=== PATIENT | male | born 1950 | race Caucasian/White ===

== ENCOUNTER 2017-10-04 20:15 | Emergency (ER) | payer OTHER, MEDICARE ==
[2017-10-04 20:34] VITALS: BP 137/77
[2017-10-04] MEDS ORDERED: ACETAMINOPHEN 325 MG TABLET PO ONE (21:07)
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
[2017-10-04] MEDS ORDERED: CYCLOBENZAPRINE HCL 10 MG TABLET PO ONE (22:11)
== END 2017-10-04 22:39 | disposition home or self-care (01) ==
LOC: ER 20:15
DX: M54.2 Cervicalgia (principal); M54.89 Other dorsalgia; M54.5 Low back pain; V49.40XA Driver injured in collision with unspecified motor vehicles in traffic accident, initial encounter
CPT/HCPCS: 72050; 72070; 99283

== ENCOUNTER 2018-11-20 20:35 | Emergency (ER) | payer OTHER, MEDICARE ==
[2018-11-20] MEDS ORDERED: FENTANYL CITRATE INJ/PF 100 MCG/2 ML AMPUL IV ONE (22:24)
[2018-11-20] MEDS ORDERED: ONDANSETRON 4 MG TAB.RAPDIS PO ONE (22:24)
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
[2018-11-20] MEDS ORDERED: FENTANYL CITRATE INJ/PF 100 MCG/2 ML AMPUL IM ONE (22:30)
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
[2018-11-21 00:33] VITALS: BP 125/68
== END 2018-11-21 00:33 | disposition home or self-care (01) ==
LOC: ER 20:35
DX: S16.1XXA Strain of muscle, fascia and tendon at neck level, initial encounter (principal); S29.019A Strain of muscle and tendon of unspecified wall of thorax, initial encounter; M54.2 Cervicalgia; M54.9 Dorsalgia, unspecified; G89.29 Other chronic pain; V87.7XXA Person injured in collision between other specified motor vehicles (traffic), initial encounter
CPT/HCPCS: 99284; 96372; 72110; 72070; 72125; S0119; J3010

== ENCOUNTER → 2019-03-11 | Outpatient (CLI) | payer OTHER, MEDICARE ==
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
--- NOTE | 2019-03-11 10:31 | RADIOLOGY REPORT (SQ) ---
EXAM DESCRIPTION: LUMBAR SPINE COMPLETE COMPLETED DATE/TIME: 03/11/2019 8:38 am REASON FOR STUDY: CERVICALGIA;LUMBAGO WITH SCIATICA M54.2 CERVICALGIA COMPARISON: 11/20/2018. NUMBER OF VIEWS: Five views including obliques. TECHNIQUE: AP, lateral, oblique, and sacral radiographic images acquired of the lumbar spine. LIMITATIONS: None. FINDINGS: MINERALIZATION: Normal. SEGMENTATION: There are 5 lumbar-type vertebral bodies. There is no transitional anatomy at the lumb osacral junction. ALIGNMENT: The alignment of the lumbar spine is unchanged with grade 1 retrolisthesis of L2 relative to L3 and L3 relative to L4. VERTEBRAE: Unchanged compression deformity of the superior endplate of the degeneration of the facet joints throughout the lumbar spine. HARDWARE: None in the spine. PARASPINAL SOFT TISSUES: Normal. PELVIS: Intact. OTHER: No other finding. IMPRESSION: 1. Degenerative spondylosis and facet arthropathy of the lumbar spine, unchanged from . 2. Unchanged chronic fracture deformity of the L2 vertebral body with approximately 25% loss of the v ertebral body height. TECHNICAL DOCUMENTATION: JOB ID: [id number] [employer]- All Rights Reserved Reading location - IP/workstation name: [email or web address]
== END ==
LOC: OD 08:13
PROVIDERS: ATTEND Nurse Practitioner Family
DX: M47.892 Other spondylosis, cervical region (principal); M54.2 Cervicalgia; M54.40 Lumbago with sciatica, unspecified side
CPT/HCPCS: 72050; 72110

== ENCOUNTER 2019-04-01 08:50 | Day surgery (SDC) | payer OTHER, MEDICARE ==
[~2019-04-01 08:50] MED LIST: PROPOFOL INJ 200 MG/20 ML VIAL IV ONE
[2019-04-01 10:57] VITALS: BP 154/90
--- NOTE | 2019-04-01 12:09 | Operative Report ---
Operative Report DATE OF SURGERY: 04/01/19 Operative Report: The risks, benefits and alternatives of the procedure including the risk of bleeding, perforation requiring surgery have been explained to the patient in detail and informed consent has been obtained. The patient is taken back to the endoscopy suite and placed in a left, lateral decubital position. Timeout was called. Propofol medication is administered. Rectal examination is done which did not reveal any masses, tears or fissures. An Olympus videoscope is inserted into the patient's rectum. The scope was then carefully advanced all the way to the cecum. The cecum was identified by the usual anatomical landmarks of the ileocecal valve as well as the appendiceal office. Photodocumentation is obtained. The scope was then sequentially pulled back via the rest segments of the colon including the ascending colon, hepatic flexure, transverse colon, splenic flexure, descending colon and finally into the rectosigmoid portions of the colon. Retroflexion maneuver is performed. PREOPERATIVE DIAGNOSIS: Colorectal cancer screening POSTOPERATIVE DIAGNOSIS: Rectal polyp that was removed via biopsy forceps. Diverticulosis without any evidence of diverticulitis. Internal hemorrhoids OPERATION: Colonoscopy with biopsy SURGEON: JORGE CORCORAN ANESTHESIA: LMAC TISSUE REMOVED OR ALTERED: As noted above. COMPLICATIONS: None. ESTIMATED BLOOD LOSS: None. INTRAOPERATIVE FINDINGS: As noted above. PROCEDURE: Patient tolerated the procedure well No immediate postprocedure complications are noted. Patient is discharged in good condition. Discharge date 04/01/2019. Discharge diet: Regular. Discharge activity: Regular. 2 to 3-week follow-up to discuss findings. Patient is instructed to call the office or proceed to the emergency room should there be any further problems or questions. Wait on the pathology. 5-year surveillance colonoscopy.
== END 2019-04-01 11:00 | disposition home or self-care (01) ==
LOC: END 08:50
PROVIDERS: ATTEND Internal Medicine Gastroenterology
DX: Z12.11 Encounter for screening for malignant neoplasm of colon (principal); D12.8 Benign neoplasm of rectum; K57.30 Diverticulosis of large intestine without perforation or abscess without bleeding; K64.8 Other hemorrhoids; Z87.891 Personal history of nicotine dependence; J45.20 Mild intermittent asthma, uncomplicated; D68.2 Hereditary deficiency of other clotting factors
CPT/HCPCS: 45380; 88305 ×2; 00811; J2704; 811

== ENCOUNTER 2020-02-25 11:29 | Inpatient (IN) | payer OTHER, MEDICARE ==
[2020-02-25] MEDS ORDERED: IPRATROPIUM/ALBUTEROL 0.5-2.5 MG/3 ML AMPUL NEB ONE (12:06)
--- NOTE | 2020-02-25 12:25 | RADIOLOGY REPORT (SQ) ---
EXAM DESCRIPTION: CHEST SINGLE VIEW IMAGES COMPLETED DATE/TIME: 02/25/2020 12:10 pm REASON FOR STUDY: SOB COMPARISON: None. EXAM PARAMETERS: NUMBER OF VIEWS: One view. TECHNIQUE: Single frontal radiographic view of the chest acquired. RADIATION DOSE: NA LIMITATIONS: None. FINDINGS: LUNGS AND PLEURA: The lungs are hyperlucent from obstructive disease. Few Janie lines at the left lung base, question minimal interstitial edema. No dense consolidation worrisome for pneumonia. No pleural effusion or pneumothorax. MEDIASTINUM AND HILAR STRUCTURES: No masses. Contour normal. HEART AND VASCULAR STRUCTURES: No cardiomegaly BONES: No acute findings. HARDWARE: None in the chest. OTHER: No other significant finding. IMPRESSION: Obstructive lung disease Few Janie lines at the left lung base, question minimal interstitial pulmonary edema TECHNICAL DOCUMENTATION: JOB ID: [id number] 2010 [employer]- All Rights Reserved Reading location - IP/workstation name: [email or web address]
[2020-02-25 12:39] LABS: ABSOLUTE EOSINOPHILS # (AUTO) 0.1 10^3/uL (0.0-0.6); ABSOLUTE LYMPHOCYTES (AUTO) 0.7 10^3/uL (0.5-4.7); ABSOLUTE MONOCYTES (AUTO) 0.3 10^3/uL (0.1-1.4); ABSOLUTE NEUT (AUTO) 2.8 10^3/uL (1.7-8.2); BASOPHILS % (AUTO) 0.3 % (0-2); HEMATOCRIT 43.7 % (37.9-51.0); HEMOGLOBIN 15.6 g/dL (13.5-17.0); LYMPHOCYTES % (AUTO) 17.4 % (13-45); MEAN CORPUSCULAR HEMOGLOBIN 33.6 pg (27.0-33.4); MEAN CORPUSCULAR HGB CONC 35.7 g/dL (32.0-36.0); MEAN CORPUSCULAR VOLUME 94 fl (80-97); MONOCYTES % (AUTO) 6.6 % (3-13); PLATELET COUNT 174 10^3/uL (150-450); RED BLOOD COUNT 4.66 10^6/uL (4.35-5.55); RED CELL DISTRIBUTION WIDTH 12.8 % (11.5-14.0); SEGMENTED NEUTROPHILS % (AUTO) 73.7 % (42-78); TOTAL CELLS COUNTED % (AUTO) 100 %; WHITE BLOOD COUNT 3.9 10^3/uL (4.0-10.5)
[2020-02-25 12:41] LABS: VENOUS BLOOD BASE EXCESS -1.3 mmol/L; VENOUS BLOOD HCO3 22.4 mmol/L (20-32); VENOUS BLOOD PCO2 35.1 mmHg (35-63); VENOUS BLOOD PH 7.42 (7.30-7.42)
[2020-02-25 12:44] LABS: INTERNATIONAL RATION (INR) 0.91; PROTHROMBIN TIME 12.4 SEC (11.4-15.4)
[2020-02-25 12:46] LABS: D-DIMER 2.44 ug/mL (0.00-0.50)
--- NOTE | 2020-02-25 12:49 | ER Document Report ---
Entered by AMBROSIO KERR SCRIBE 02/25/20 1243 Acting as scribe for:POLO GREEN MD ED Respiratory Problem - General Stated Complaint: SHORTNESS OF BREATH Time Seen by Provider: 02/25/20 11:52 Primary Care Provider: YVES HUNTER FNP-C [Primary Care Provider] - Follow up as needed Information source: Patient Notes: This 69 year old male patient presents to the emergency department today with complaints of an 8-day history of shortness of breath. Patient was tested for COVID last Thursday and he got his test results today which were positive. Patient reports he got tested due to feeling short of breath, lightheaded with a nonproductive cough. Patient has been febrile at home. Patient has an oxygen saturation of 88% on room air here. TRAVEL OUTSIDE OF THE [place] IN LAST 30 DAYS: No - Related Data Allergies/Adverse Reactions: No Known Allergies Allergy (Verified 02/25/20 15:51) Past Medical History - General Information source: Patient - Social History Smoking Status: Former Smoker - quit in 1994 Cigarette use (# per day): Yes Frequency of alcohol use: None Lives with: Alone Family History: Reviewed & Not Pertinent Musculoskeletal Medical History: Reports Hx Arthritis - NECK, BACK Past Surgical History: Reports: Hx Orthopedic Surgery - Toe has metal in it - Immunizations Hx Diphtheria, Pertussis, Tetanus Vaccination: Yes Review of Systems - Review of Systems Constitutional: See HPI, Fever EENT: No symptoms reported Cardiovascular: See HPI, Lightheaded Respiratory: See HPI, Cough, Short of breath Gastrointestinal: No symptoms reported Genitourinary: No symptoms reported Male Genitourinary: No symptoms reported Musculoskeletal: No symptoms reported Skin: No symptoms reported Hematologic/Lymphatic: No symptoms reported Neurological/Psychological: No symptoms reported -: Yes All other systems reviewed and negative Physical Exam - Vital signs Vitals: Temp 98.5 F 02/25/20 11:45 - Notes Notes: Physical Exam: General: Alert, appears short of breath. HEENT: Normocephalic. Atraumatic. PERRL. Extraocular movements intact. O ropharynx clear. Neck: Supple. Non-tender. Respiratory: Moderate respiratory distress, 88% on room air. Dyspneic. Tachypneic. Wheezing and rhonchi with forced cough. Cardiovascular: Regular rate and rhythm. Abdominal: Normal Inspection. Non-tender. No distension. Normal Bowel Sounds. Back: No gross abnormalities. Extremities: Moves all four extremities. Upper extremities: Normal inspection. Normal ROM. Lower extremities: Normal inspection. No edema. Normal ROM. Neurological: Normal cognition. AAOx4. Normal speech. Psychological: Normal affect. Normal Mood. Skin: Warm. Dry. Normal color. Course - Re-evaluation Re-evalutation: 02/25/20 13:44 The patient was evaluated during the global COVID-19 pandemic and that diagnosis was suspected/considered upon their initial presentation. Their evaluation, treatment and testing was consistent with current guidelines for patients who present with complaints or symptoms that may be related to COVID-19. 02/25/20 13:58 The patient's chest x-ray shows COPD with a few curly B-lines. He does have some wheezes and rhonchi. His physical findings do not adequately explain his low oxygen saturations, and he does have a markedly elevated d-dimer with known COVID positive disease. A CTA chest will be obtained to rule out pulmonary embolus. - Vital Signs Vital signs: Temp Pulse Resp BP Pulse Ox 98.5 F 85 20 122/78 94 02/25/20 12:04 02/25/20 12:04 02/25/20 12:04 02/25/20 12:04 02/25/20 12:37 - Laboratory Result Diagrams: 02/25/20 12:23 02/25/20 12:23 Laboratory results interpreted by me: 02/25/20 02/25/20 02/25/20 12:23 12:23 12:23 WBC 3.9 L MCH 33.6 H D-Dimer 2.44 H Sodium 129.9 L Ferritin 630.00 H Lactate Dehydrogenase 305 H Total Protein 6.0 L Albumin 3.4 L - Diagnostic Test Radiology reviewed: Image reviewed, Reports reviewed - Chest x-ray shows COPD with a few curly B-lines. - EKG Interpretation by [facility] EKG shows normal: Sinus rhythm, Carbon, Intervals, QRS Complexes, ST-T Waves Rate: Normal - 86 Rhythm: NSR Critical Care Note - Critical Care Note Total time excluding time spent on procedures (mins): 30 Comments: At least 30 minutes spent evaluating the patient and reviewing past medical records. Instituting treatments and reevaluating responses. Doing advanced diagnostic testing to exclude more serious causes for his hypoxia. Discussing patient case with hospitalist to affect admission. Discharge - Discharge Clinical Impression: COPD with exacerbation, Hypoxia, COVID-19 Condition: Good Disposition: ADMITTED INPATIENT Admitting Provider: Michel (Hospitalist) - Sheree Mcgraw STUDENT UNION CONSULTANT will be seeing the patient and writing orders. Unit Admitted: Telemetry I personally performed the services described in the documentation, reviewed and edited the documentation which was dictated to the scribe in my presence, and it accurately records my words and actions.
[2020-02-25 12:56] LABS: ALBUMIN 3.4 g/dL (3.5-5.0); ALKALINE PHOSPHATASE 61 U/L (38-126); ANION GAP 8 (5-19); ASPARTATE AMINO TRANSFERASE 39 U/L (17-59); BILIRUBIN,DIRECT 0.2 mg/dL (0.0-0.4); BILIRUBIN,TOTAL 0.6 mg/dL (0.2-1.3); BLOOD UREA NITROGEN 14 mg/dL (7-20); CALCIUM 8.5 mg/dL (8.4-10.2); CARBON DIOXIDE 24 mmol/L (22-30); CHLORIDE 98 mmol/L (98-107); CREATINE KINASE 84 U/L (55-170); GLUCOSE 102 mg/dL (75-110); POTASSIUM 4.3 mmol/L (3.6-5.0)
[2020-02-25] MEDS ORDERED: ALBUTEROL SULFATE 0.083% NEB 2.5 MG/3 ML AMPUL NEB ONE (14:00)
[2020-02-25] MEDS ORDERED: METHYLPREDNISOLONE INJ 125 MG/2 ML SDV IV ONE (14:00)
[2020-02-25] MEDS ORDERED: NORMAL SALINE 1000 ML 1,000 ML IV ONE (15:25)
--- NOTE | 2020-02-25 15:31 | RADIOLOGY REPORT (SQ) ---
EXAM DESCRIPTION: CTA CHEST IMAGES COMPLETED DATE/TIME: 02/25/2020 3:03 pm REASON FOR STUDY: Hypoxic, elevated dimer, COVID positive COMPARISON: CT chest 03/03/2016 TECHNIQUE: CT scan of the chest performed using helical scanning technique with dynamic intravenous contrast injection. Images reviewed with lung, soft tissue and bone windows. Reconstructed coronal and sagittal MPR images reviewed. Additional 3 dimensional post-processing performed to develop Maximal Intensity Projection images (LA P). All images stored on PACS. All CT scanners at this facility use dose modulation, iterative reconstruction, and/or weight based d osing when appropriate to reduce radiation dose to as low as reasonably achievable (ALARA). [facility]: Dose Right [facility]: CareDose [facility]: Dose Right [facility]: Teradose 4D [facility]: Channel Breeze CONTRAST TYPE AND DOSE: contrast/concentration: Isovue 350.00 mmol/ml; Total Contrast Delivered: 65. 0 ml; Total Saline Delivered: 62.0 ml Contrast bolus adequate for pulmonary arteries and aorta. RENAL FUNCTION: Creatinine 0.7 RADIATION DOSE: CT Rad equipment meets quality standard of care and radiation dose reduction techniq ues were employed. CTDIvol: 13.2 - 18.4 mGy. DLP: 690 mGy-cm. . LIMITATIONS: None. FINDINGS: LUNGS AND PLEURA: Increased interstitial markings are present in the dependent portion of the right and left upper lobes and right and left lower lobes. Dependent interstitial edema may be p resent. No dense consolidation worrisome for pneumonia. No pleural effusion. No pneumothorax. Airways wide ly patent. AORTA AND GREAT VESSELS: No thoracic aortic aneurysm or dissection HEART: No pericardial effusion. No significant coronary artery calcifications. PULMONARY ARTERIES: No filling defects worrisome for emboli in the main pulmonary artery, right or le ft lobar pulmonary artery. Proximal segmental pulmonary arteries are free of focal clot. HILAR AND MEDIASTINAL STRUCTURES: There is mild mediastinal adenopathy, with 7 mm short axis right pa ratracheal, sub- carinal, and left hilar lymph nodes. 1.7 x 1 cm right hilar lymph node, 1.9 x 0.9 c m right hilar lymph node HARDWARE: None in the chest. UPPER ABDOMEN: No significant findings. Limited exam. THYROID AND OTHER SOFT TISSUES: No masses. No adenopathy. BONES: No acute or significant finding. 3D MIPS: Confirm above findings. OTHER: No other significant finding. IMPRESSION: Interstitial infiltrates in the dependent portion of the bilateral upper and lower lobes . Question interstitial pulmonary edema No acute pulmonary emboli or thoracic aortic dissection Mediastinal adenopathy COMMENT: Quality ID # [id number]: Final reports with documentation of one or more dose reduction techniques (e.g., Automated exposure control, adjustment of the mA and/or kV according to patient size, use of iterative reconstruction technique) TECHNICAL DOCUMENTATION: JOB ID: [id number] 2010 [employer]- All Rights Reserved Reading location - IP/workstation name: [email or web address]
[2020-02-25] MEDS ORDERED: NORMAL SALINE 1000 ML 1,000 ML IV PRN (16:35)
[2020-02-25] MEDS ORDERED: ACETAMINOPHEN 325 MG TABLET PO PRN (16:35)
[2020-02-25] MEDS ORDERED: ALBUTEROL SULFATE 0.083% NEB 2.5 MG/3 ML AMPUL NEB PRN (16:35)
[2020-02-25] MEDS ORDERED: IPRATROPIUM/ALBUTEROL 0.5-2.5 MG/3 ML AMPUL NEB PRN (16:35)
[2020-02-25] MEDS ORDERED: PHARMACY COMMUNICATION ORDER MC NR (16:45)
--- NOTE | 2020-02-25 17:27 | PDOC H&P ---
History of Present Illness Admission Date/PCP: 02/25/20 16:03 ANASTASIA VAZQUEZ-C Patient complains of: Fever, chills, malaise, dyspnea, pleurisy History of Present Illness: MARCOS BARRIGA is a 69 year old male with a past medical history significant for mild COPD (not on daily maintenance inhalers), and opiate dependent chronic back pain who presented to the emergency department with 1 week of progressively worsening fatigue, malaise, dyspnea, nonproductive cough, and pleurisy. He was tested for COVID-19 at an outpatient clinic and notified this morning of his positive result. He tells me that he was already planning to present to the emergency department today due to his symptoms prior to knowing his results. Evaluation in the emergency department revealed Tachypnea, hypoxia, wheezing, rhonchi, leukopenia, elevated d-dimer, acceptable VBG, hyponatremia, elevated ferritin, and elevated LDH. Chest x-ray revealed obstructive disease. CTA chest showed mild mediastinal adenopathy, and interstitial infiltrates. On personal review, patient was noted to have bilateral patchy groundglass opacities to the periphery. He was provided IV fluids, Solu-Medrol, and nebulizer treatments by the ED provider. He is referred to the hospitalist service for further evaluation management of the above-stated complaints and findings Past Medical History Cardiac Medical History: Denies: Coronary Artery Disease, Myocardial Infarction, Hypertension Pulmonary Medical History: Reports: Chronic Obstructive Pulmonary Disease (COPD) Denies: Asthma, Bronchitis, Pneumonia EENT Medical History: Reports: None Neurological Medical History: Denies: Ischemic CVA, Seizures Renal/ Medical History: Reports: None Malignancy Medical History: Reports: None Musculoskeltal Medical History: Reports: Arthritis - NECK, BACK Psychiatric Medical History: Reports: None Traumatic Medical History: Reports: None Hematology: Denies: Anemia Hematology History Note: Factor V Leiden Infectious Medical History: Reports: None Past Surgical History Past Surgical History: Reports: Orthopedic Surgery - Toe has metal in it Social History Information Source: Patient Lives with: Spouse/Significant other Smoking Status: Former Smoker Electronic Cigarette use?: No Last Time Smoked: 1994 Frequency of Alcohol Use: None Hx Recreational Drug Use: No - Advance Directive Resuscitation Status: Do Not Intubate Family History Family History: Reviewed & Not Pertinent Parental Family History Reviewed: Yes Children Family History Reviewed: Yes Sibling(s) Family History Reviewed.: Yes Medication/Allergy Home Medications: Oxycodone HCl/Acetaminophen [Percocet 5-325 mg Tablet] 1 - 2 tab PO Q4H PRN #25 tablet 03/03/16 Cyclobenzaprine HCl [Flexeril 10 mg Tablet] 10 mg PO TIDP PRN #15 tab 10/04/17 Albuterol Sulfate [Proair Respiclick] 90 mcg IH ASDIR PRN 03/30/19 Gabapentin [Neurontin 300 mg Capsule] 200 mg PO QHS 03/30/19 Ibuprofen [Ibu] 800 mg PO TID PRN 03/30/19 Allergies/Adverse Reactions: No Known Allergies Allergy (Verified 02/25/20 15:51) Review of Systems Constitutional: PRESENT: anorexia, chills, fatigue, fever(s), weakness. ABSENT: headache(s), weight gain, weight loss Eyes: ABSENT: visual disturbances Ears: ABSENT: hearing changes Cardiovascular: ABSENT: chest pain, dyspnea on exertion, edema, orthropnea, palpitations Respiratory: PRESENT: as per HPI, cough, dyspnea. ABSENT: hemoptysis Gastrointestinal: ABSENT: abdominal pain, constipation, diarrhea, hematemesis, hematochezia, nausea, vomiting Genitourinary: ABSENT: dysuria, hematuria Musculoskeletal: ABSENT: joint swelling Integumentary: ABSENT: rash, wounds Neurological: ABSENT: abnormal gait, abnormal speech, confusion, dizziness, focal weakness, syncope Psychiatric: ABSENT: anxiety, depression, homidical ideation, suicidal ideation Endocrine: ABSENT: cold intolerance, heat intolerance, polydipsia, polyuria Hematologic/Lymphatic: ABSENT: easy bleeding, easy bruising Physical Exam Vital Signs: Temp Pulse Resp BP Pulse Ox 98.5 F 85 19 135/90 H 97 02/25/20 12:04 02/25/20 12:04 02/25/20 15:45 02/25/20 15:45 02/25/20 15:45 General appearance: PRESENT: no acute distress, cooperative, well-developed, well-nourished, other - Acutely ill-appearing Head exam: PRESENT: atraumatic, normocephalic Eye exam: PRESENT: conjunctiva pink, EOMI, PERRLA. ABSENT: scleral icterus Mouth exam: PRESENT: moist, tongue midline Respiratory exam: PRESENT: chest wall tenderness - Pleurisy, prolonged expiratory phas, rhonchi, symmetrical, unlabored, wheezes, other - Oxygen by nasal cannula. ABSENT: rales Cardiovascular exam: PRESENT: RRR. ABSENT: diastolic murmur, rubs, systolic murmur Pulses: PRESENT: normal dorsalis pedis pul Vascular exam: PRESENT: normal capillary refill GI/Abdominal exam: PRESENT: normal bowel sounds, soft. ABSENT: distended, guarding, mass, organolmegaly, rebound, tenderness Rectal exam: PRESENT: deferred Extremities exam: PRESENT: full ROM. ABSENT: calf tenderness, clubbing, pedal edema Musculoskeletal exam: PRESENT: ambulatory Neurological exam: PRESENT: alert, awake, oriented to person, oriented to place, oriented to time, oriented to situation, CN II-XII grossly intact. ABSENT: motor sensory deficit Psychiatric exam: PRESENT: appropriate affect, normal mood. ABSENT: homicidal ideation, suicidal ideation Skin exam: PRESENT: dry, intact, warm. ABSENT: cyanosis, rash Results Laboratory Results: 02/25/20 12:23 02/25/20 12:23 02/25/20 02/25/20 02/25/20 12:23 12:23 12:23 WBC 3.9 L RBC 4.66 Hgb 15.6 Hct 43.7 MCV 94 MCH 33.6 H MCHC 35.7 RDW 12.8 Plt Count 174 Seg Neutrophils % 73.7 VBG pH 7.42 VBG pCO2 35.1 VBG HCO3 22.4 VBG Base Excess -1.3 Sodium 129.9 L Potassium 4.3 Chloride 98 Carbon Dioxide 24 Anion Gap 8 BUN 14 Creatinine 0.67 Est GFR ( Amer) > 60 Glucose 102 Calcium 8.5 Ferritin 630.00 H Total Bilirubin 0.6 AST 39 Alkaline Phosphatase 61 Total Protein 6.0 L Albumin 3.4 L 02/25/20 02/25/20 12:23 12:23 Creatine Kinase 84 Troponin I < 0.012 Impressions: Chest X-Ray 02/25/20 00:00 IMPRESSION: Obstructive lung disease Few Janie lines at the left lung base, question minimal interstitial pulmonary edema Chest/Abdomen CTA 02/25/20 13:42 IMPRESSION: Interstitial infiltrates in the dependent portion of the bilateral upper and lower lobes. Question interstitial pulmonary edema No acute pulmonary emboli or thoracic aortic dissection Mediastinal adenopathy Assessment and Plan - Diagnosis (1) COVID-19 Is this a current diagnosis for this admission?: Yes Plan: Patient is admitted to the medical floor on continuous cardiac telemetry and pulse oximetry. He is provided supplemental oxygen, as needed, maintain saturations greater than 89%. Scheduled and as needed nebulizer treatments. He is placed on IV azithromycin. Have requested Remdesivir. Dexamethasone mg every 8 hours Full dose Lovenox. Zinc, vitamin D, vitamin C, and melatonin supplementation. Encourage pulmonary toilet. Isolation precautions. (2) COPD with exacerbation Is this a current diagnosis for this admission?: Yes Plan: Management for COPD as above. (3) Acute respiratory failure with hypoxia Is this a current diagnosis for this admission?: Yes Plan: Secondary to #1 and 2. Management as above. (4) Opiate dependence, continuous Is this a current diagnosis for this admission?: Yes Plan: We will continue the patient's home medication regiment. - Time Time Spent with patient: 35 or more minutes Medications reviewed and adjusted accordingly: Yes Anticipated Discharge Disposition: Home, Self Care Anticipated Discharge Timeframe: within 72 hours
[2020-02-25] MEDS ORDERED: AZITHROMYCIN INJ 500 MG VIAL IV ONE (17:39)
[2020-02-25] MEDS: AZITHROMYCIN 500 MG in DEXTROSE 5%-WATER 250 ML IV SCH (18:00)
[2020-02-25] MEDS: ASCORBIC ACID 500 MG TABLET PO SCH (18:01)
--- NOTE | 2020-02-25 19:00 | EKG REPORT ---
SEVERITY:- NORMAL ECG - SINUS RHYTHM : Confirmed by: Yulisa Ruano MD 25-Feb-2020 18:58:45
[2020-02-25] MEDS ORDERED: ENOXAPARIN SODIUM INJ 100 MG/1 ML DISP.SYRIN SUBCUT ONE (21:00)
[2020-02-25] MEDS ORDERED: GABAPENTIN 300 MG CAPSULE PO SCH (22:00)
[2020-02-25] MEDS: DEXAMETHASONE SOD PHOSPHATE INJ 4 MG/1 ML VIAL IV SCH (22:06)
[2020-02-25] MEDS: FAMOTIDINE 20 MG TABLET PO SCH (22:06)
[2020-02-25] MEDS: MELATONIN 3 MG TABLET PO SCH (22:06)
[2020-02-25] MEDS: OXYCODONE-ACETAMINOPHEN 5-325 MG TABLET PO PRN (22:07)
[2020-02-26] MEDS: DEXAMETHASONE SOD PHOSPHATE INJ 4 MG/1 ML VIAL IV SCH ×3 (05:35→22:14)
[2020-02-26 06:29] LABS: HEMATOCRIT 40.5 % (37.9-51.0); HEMOGLOBIN 14.3 g/dL (13.5-17.0); MEAN CORPUSCULAR HGB CONC 35.2 g/dL (32.0-36.0); MEAN CORPUSCULAR VOLUME 94 fl (80-97); PLATELET COUNT 186 10^3/uL (150-450); RED BLOOD COUNT 4.32 10^6/uL (4.35-5.55); RED CELL DISTRIBUTION WIDTH 12.8 % (11.5-14.0)
[2020-02-26 06:42] LABS: ANION GAP 7 (5-19); BLOOD UREA NITROGEN 14 mg/dL (7-20); CALCIUM 8.2 mg/dL (8.4-10.2); CARBON DIOXIDE 21 mmol/L (22-30); CHLORIDE 104 mmol/L (98-107); GLUCOSE 178 mg/dL (75-110); POTASSIUM 3.9 mmol/L (3.6-5.0)
[2020-02-26 08:21] LABS: ABSOLUTE LYMPHOCYTES# (MANUAL) 0.2 10^3/uL (0.5-4.7); ABSOLUTE MONOCYTES # (MANUAL) 0.1 10^3/uL (0.1-1.4); BASOPHILS % (MANUAL) 0 % (0-2); EOSINOPHILS % (MANUAL) 0 % (0-6); LYMPHOCYTES % (MANUAL) 12 % (13-45); MONOCYTES % (MANUAL) 4 % (3-13); SEGMENTED NEUTROPHILS % (MAN) 84 % (42-78); TOTAL CELLS COUNTED 50
[2020-02-26 08:22] LABS: PLATELET CLUMPS PRESENT; PLATELET COMMENT ADEQUATE; RBC MORPHOLOGY COMMENT NORMO-CYTIC/CHROMIC
[2020-02-26] MEDS: ZINC SULFATE 220 MG CAPSULE PO SCH (09:37)
[2020-02-26] MEDS: ASCORBIC ACID 500 MG TABLET PO SCH ×2 (09:38→17:18)
[2020-02-26] MEDS: ENOXAPARIN SODIUM INJ 100 MG/1 ML DISP.SYRIN SUBCUT SCH ×2 (09:38→22:13)
[2020-02-26] MEDS: CHOLECALCIFEROL (D3) 400 UNIT TABLET PO SCH (09:38)
[2020-02-26] MEDS: FAMOTIDINE 20 MG TABLET PO SCH ×2 (09:38→22:13)
[2020-02-26 10:20] LABS: APPEARANCE,URINE CLEAR; BILIRUBIN,URINE NEGATIVE (NEGATIVE); COLOR,URINE YELLOW; GLUCOSE, URINE 150 mg/dL (NEGATIVE); KETONES,URINE 20 mg/dL (NEGATIVE); LEUKOCYTE ESTERASE,URINE NEGATIVE (NEGATIVE); NITRITE,URINE NEGATIVE (NEGATIVE); PROTEIN,URINE NEGATIVE (NEGATIVE); URINE SPECIFIC GRAVITY 1.017
[2020-02-26] MEDS ORDERED: REMDESIVIR (EUA) 200 MG in NORMAL SALINE 250 ML IV ONE (11:00)
[2020-02-26] MEDS: AZITHROMYCIN 500 MG in DEXTROSE 5%-WATER 250 ML IV SCH (17:17)
[2020-02-26] MEDS ORDERED: HYDROCORTISONE 1% CREAM 28.35 GM TP PRN (17:46)
--- NOTE | 2020-02-26 17:50 | PDOC PROGRESS REPORT ---
Subjective Progress Note for:: 02/26/20 Subjective:: MARCOS BARRIGA is a 69 year old male with a past medical history significant for mild COPD (not on daily maintenance inhalers), and opiate dependent chronic back pain who was admitted 02/25/2020 with Acute respiratory failure with hypoxia secondary COVID 19 and COPD exacerbation. Patient is seen on afternoon rounds. He was found sitting up to the recliner, eating his dinner. Currently on room air and maintaining oxygen saturations of 91 to 94%. He states he is feeling much better today; no longer having body aches, dyspnea at rest has resolved. Does continue to have dyspnea with mild exertion, and in fact, is noted to be tachypneic with accessory muscle use upon return from restroom. He also reports mild pleurisy but notes that this is also improved. He denies fever, chills, cardiac chest pain, orthopnea, abdominal pain, nausea vomiting diarrhea. He has no questions or concerns at this time. Nursing notes inverted T waves on telemetry. Reason For Visit: COPD WITH EXACERBATION,HYPOXIA,COVID-19 Physical Exam Vital Signs: Temp Pulse Resp BP Pulse Ox 97.5 F 70 18 132/70 H 93 02/26/20 16:00 02/26/20 16:00 02/26/20 16:00 02/26/20 16:00 02/26/20 16:00 Pulse Oximeter Continuous Start: 02/25/20 16:35 Freq: RTQ4 Status: Active Protocol: Document 02/26/20 16:00 [facility] (Rec: 02/26/20 16:17 [facility] [id number]) Pulse Oximetry Assessment Oxygen Saturation (92-100) 93 Oxygen Flow Rate (L/min) 2 Oxygen Delivery Method Nasal Cannula Equipment Usage Equipment Standby Continuous SpO2 Machine # - Intake & Output 02/25/20 02/26/20 02/27/20 06:59 06:59 06:59 Intake Total 2270 770 Balance 2270 770 Weight 91.4 kg General appearance: PRESENT: no acute distress, cooperative, well-developed, well-nourished Head exam: PRESENT: atraumatic, normocephalic Eye exam: PRESENT: conjunctiva pink, EOMI, PERRLA. ABSENT: scleral icterus Mouth exam: PRESENT: moist, tongue midline Respiratory exam: PRESENT: accessory muscle use, clear to auscultation hernan, symmetrical, tachypnea, other - Room air. ABSENT: rales, rhonchi, wheezes Cardiovascular exam: PRESENT: RRR. ABSENT: diastolic murmur, rubs, systolic murmur Vascular exam: PRESENT: normal capillary refill Extremities exam: PRESENT: full ROM. ABSENT: calf tenderness, clubbing, pedal edema Musculoskeletal exam: PRESENT: ambulatory Neurological exam: PRESENT: alert, awake, oriented to person, oriented to place, oriented to time, oriented to situation, CN II-XII grossly intact. ABSENT: motor sensory deficit Psychiatric exam: PRESENT: appropriate affect, normal mood. ABSENT: homicidal ideation, suicidal ideation Skin exam: PRESENT: dry, rash - Light pink, wheals, to back without pruritus, warm. ABSENT: cyanosis Results Laboratory Results: 02/26/20 05:44 02/26/20 05:44 02/26/20 02/26/20 02/26/20 05:44 05:44 09:30 WBC 1.8 L D RBC 4.32 L Hgb 14.3 Hct 40.5 MCV 94 MCH 33.0 MCHC 35.2 RDW 12.8 Plt Count 186 Seg Neutrophils % Not Reportable Sodium 131.9 L Potassium 3.9 Chloride 104 Carbon Dioxide 21 L Anion Gap 7 BUN 14 Creatinine 0.50 L Est GFR ( Amer) > 60 Glucose 178 H Calcium 8.2 L Urine Color YELLOW Urine Appearance CLEAR Urine pH 6.0 Ur Specific [place] 1.017 Urine Protein NEGATIVE Urine Glucose (UA) 150 H Urine Ketones 20 H Urine Blood NEGATIVE Urine Nitrite NEGATIVE Ur Leukocyte Esterase NEGATIVE Urine WBC (Auto) 1 02/25/20 02/25/20 12:23 12:23 Creatine Kinase 84 Troponin I < 0.012 Impressions: Chest X-Ray 02/25/20 00:00 IMPRESSION: Obstructive lung disease Few Janie lines at the left lung base, question minimal interstitial pulmonary edema Chest/Abdomen CTA 02/25/20 13:42 IMPRESSION: Interstitial infiltrates in the dependent portion of the bilateral upper and lower lobes. Question interstitial pulmonary edema No acute pulmonary emboli or thoracic aortic dissection Mediastinal adenopathy Assessment and Plan - Diagnosis (1) COVID-19 Is this a current diagnosis for this admission?: Yes Plan: Patient is admitted to the medical floor on continuous cardiac telemetry and pulse oximetry. He is provided supplemental oxygen, as needed, maintain saturations greater than 89%. Scheduled and as needed nebulizer treatments. He is placed on IV azithromycin; Day #2. Start Remdesivir; loading dose today Dexamethasone mg every 8 hours Full dose Lovenox. Zinc, vitamin D, vitamin C, and melatonin supplementation. Encourage pulmonary toilet. Isolation precautions. (2) COPD with exacerbation Is this a current diagnosis for this admission?: Yes Plan: Management for COPD as above. Patient requesting pulmonology referral; follow up as outpatient 2-4 weeks following COVID recovery. (3) Acute respiratory failure with hypoxia Is this a current diagnosis for this admission?: Yes Plan: Improved; now maintaining oxygen saturations on room air, though, with increased work of breathing. Secondary to #1 and 2. Management as above. (4) Opiate dependence, continuous Is this a current diagnosis for this admission?: Yes Plan: We will continue the patient's home medication regiment. - Time Time Spent with patient: 25-34 minutes Medications reviewed and adjusted accordingly: Yes Anticipated Discharge Disposition: Home, Self Care Anticipated Discharge Timeframe: within 72 hours
[2020-02-26] MEDS ORDERED: DRONABINOL 2.5 MG CAPSULE PO SCH (18:00)
[2020-02-26] MEDS ORDERED: GABAPENTIN 300 MG CAPSULE PO SCH (18:00)
--- NOTE | 2020-02-26 20:53 | EKG REPORT ---
SEVERITY:- NORMAL ECG - SINUS RHYTHM : Confirmed by: Yulisa Ruano MD 26-Feb-2020 20:52:40
[2020-02-26] MEDS: OXYCODONE-ACETAMINOPHEN 5-325 MG TABLET PO PRN (22:13)
[2020-02-26] MEDS: CYCLOBENZAPRINE HCL 10 MG TABLET PO PRN (22:13)
[2020-02-26] MEDS: MELATONIN 3 MG TABLET PO SCH (22:13)
[2020-02-26] MEDS: GABAPENTIN 300 MG CAPSULE PO SCH (22:13)
[2020-02-27 04:41] LABS: HEMATOCRIT 40.9 % (37.9-51.0); HEMOGLOBIN 14.4 g/dL (13.5-17.0); MEAN CORPUSCULAR HGB CONC 35.2 g/dL (32.0-36.0); MEAN CORPUSCULAR VOLUME 94 fl (80-97); PLATELET COUNT 234 10^3/uL (150-450); RED BLOOD COUNT 4.37 10^6/uL (4.35-5.55); RED CELL DISTRIBUTION WIDTH 12.6 % (11.5-14.0)
[2020-02-27 04:45] LABS: WHITE BLOOD COUNT 10.1 10^3/uL (4.0-10.5)
[2020-02-27 04:53] LABS: ANION GAP 10 (5-19); BLOOD UREA NITROGEN 13 mg/dL (7-20); CALCIUM 8.6 mg/dL (8.4-10.2); CARBON DIOXIDE 23 mmol/L (22-30); CHLORIDE 105 mmol/L (98-107); GLUCOSE 140 mg/dL (75-110); POTASSIUM 4.1 mmol/L (3.6-5.0)
[2020-02-27] MEDS: DEXAMETHASONE SOD PHOSPHATE INJ 4 MG/1 ML VIAL IV SCH ×2 (05:55→13:12)
[2020-02-27] MEDS: FAMOTIDINE 20 MG TABLET PO SCH ×2 (09:46→21:50)
[2020-02-27] MEDS: GABAPENTIN 300 MG CAPSULE PO SCH ×3 (09:46→21:50)
[2020-02-27] MEDS: ZINC SULFATE 220 MG CAPSULE PO SCH (09:46)
[2020-02-27] MEDS: ENOXAPARIN SODIUM INJ 100 MG/1 ML DISP.SYRIN SUBCUT SCH ×2 (09:47→21:51)
[2020-02-27] MEDS: CHOLECALCIFEROL (D3) 400 UNIT TABLET PO SCH (09:47)
[2020-02-27] MEDS: REMDESIVIR (EUA) 100 MG in NORMAL SALINE 250 ML IV SCH (09:47)
[2020-02-27] MEDS: ASCORBIC ACID 500 MG TABLET PO SCH ×2 (09:47→17:07)
[2020-02-27 11:26] LABS: WHITE BLOOD COUNT 1.8 10^3/uL (4.0-10.5)
[2020-02-27 13:05] LABS: PATH REVIEW PATHOLOGIST REVIEWED
[2020-02-27 15:37] LABS: APPEARANCE,URINE CLEAR; BILIRUBIN,URINE NEGATIVE (NEGATIVE); COLOR,URINE YELLOW; GLUCOSE, URINE NEGATIVE (NEGATIVE); KETONES,URINE NEGATIVE (NEGATIVE); LEUKOCYTE ESTERASE,URINE NEGATIVE (NEGATIVE); NITRITE,URINE NEGATIVE (NEGATIVE); PROTEIN,URINE 30 mg/dL (NEGATIVE); URINE SPECIFIC GRAVITY 1.027; UROBILINOGEN,URINE NEGATIVE mg/dL (<2.0)
[2020-02-27] MEDS: AZITHROMYCIN 500 MG in DEXTROSE 5%-WATER 250 ML IV SCH (17:07)
--- NOTE | 2020-02-27 19:26 | PDOC PROGRESS REPORT ---
Subjective Progress Note for:: 02/27/20 Subjective:: MARCOS BARRIGA is a 69 year old male with a past medical history significant for mild COPD (not on daily maintenance inhalers), and opiate dependent chronic back pain who was admitted 02/25/2020 with Acute respiratory failure with hypoxia secondary COVID 19 and COPD exacerbation. Patient is seen on afternoon rounds; patient's present by face time. He was resting in his bed, comfortably, on room air. Cynthia states he is feeling much better today; no longer having body aches, dyspnea at rest has resolved. Does continue to have dyspnea with mild exertion; he notes shortness of breath following meals and use of the restroom. He also reports mild pleurisy but notes that this is also improved. He denies fever, chills, cardiac chest pain, orthopnea, abdominal pain, nausea vomiting diarrhea. Patient request pulmonology referral for outpatient follow-up to evaluate/manage his COPD. They have no other questions or concerns at this time. No concerns per nursing. Reason For Visit: COPD WITH EXACERBATION,HYPOXIA,COVID-19 Physical Exam Vital Signs: Temp Pulse Resp BP Pulse Ox 97.9 F 71 18 124/70 95 02/27/20 17:24 02/27/20 17:24 02/27/20 17:24 02/27/20 17:24 02/27/20 17:24 Pulse Oximeter Continuous Start: 02/25/20 16:35 Freq: RTQ4 Status: Active Protocol: Document 02/27/20 17:19 [facility] (Rec: 02/27/20 17:20 [facility] [id number]) Pulse Oximetry Assessment Oxygen Saturation (92-100) 91 Oxygen Delivery Method Room Air Fraction of Inspired Oxygen (FIO2) 21 Equipment Usage Equipment Standby Continuous SpO2 Machine # - Intake & Output 02/26/20 02/27/20 02/28/20 06:59 06:59 06:59 Intake Total 2270 2296 1736 Balance 2270 2296 1736 Weight 91.4 kg 92.4 kg General appearance: PRESENT: no acute distress, cooperative, well-developed, well-nourished Head exam: PRESENT: atraumatic, normocephalic Eye exam: PRESENT: conjunctiva pink, EOMI, PERRLA. ABSENT: scleral icterus Mouth exam: PRESENT: moist, tongue midline Respiratory exam: PRESENT: clear to auscultation hernan, decreased breath sounds, symmetrical, tachypnea - Mild, unlabored, other - Throughout room air. ABSENT: rales, rhonchi, wheezes Cardiovascular exam: PRESENT: RRR. ABSENT: diastolic murmur, rubs, systolic m urmur Vascular exam: PRESENT: normal capillary refill Extremities exam: PRESENT: full ROM. ABSENT: calf tenderness, clubbing, pedal edema Neurological exam: PRESENT: alert, awake, oriented to person, oriented to place, oriented to time, oriented to situation, CN II-XII grossly intact. ABSENT: motor sensory deficit Psychiatric exam: PRESENT: appropriate affect, normal mood. ABSENT: homicidal ideation, suicidal ideation Skin exam: PRESENT: dry, intact, rash, warm. ABSENT: cyanosis Results Laboratory Results: 02/27/20 03:36 02/27/20 03:36 02/26/20 02/27/20 02/27/20 05:44 03:36 03:36 WBC 1.8 L D 10.1 D RBC 4.37 Hgb 14.4 Hct 40.9 MCV 94 MCH 33.0 MCHC 35.2 RDW 12.6 Plt Count 234 Sodium 137.6 Potassium 4.1 Chloride 105 Carbon Dioxide 23 Anion Gap 10 BUN 13 Creatinine 0.65 Est GFR ( Amer) > 60 Glucose 140 H Calcium 8.6 Urine Color Urine Appearance Urine pH Ur Specific [place] Urine Protein Urine Glucose (UA) Urine Ketones Urine Blood Urine Nitrite Ur Leukocyte Esterase Urine WBC (Auto) Urine RBC (Auto) 02/27/20 15:05 WBC RBC Hgb Hct MCV MCH MCHC RDW Plt Count Sodium Potassium Chloride Carbon Dioxide Anion Gap BUN Creatinine Est GFR ( Amer) Glucose Calcium Urine Color YELLOW Urine Appearance CLEAR Urine pH 6.0 Ur Specific [place] 1.027 Urine Protein 30 H Urine Glucose (UA) NEGATIVE Urine Ketones NEGATIVE Urine Blood NEGATIVE Urine Nitrite NEGATIVE Ur Leukocyte Esterase NEGATIVE Urine WBC (Auto) 1 Urine RBC (Auto) 0 02/25/20 02/25/20 12:23 12:23 Creatine Kinase 84 Troponin I < 0.012 Impressions: Chest X-Ray 02/25/20 00:00 IMPRESSION: Obstructive lung disease Few Janie lines at the left lung base, question minimal interstitial pulmonary edema Chest/Abdomen CTA 02/25/20 13:42 IMPRESSION: Interstitial infiltrates in the dependent portion of the bilateral upper and lower lobes. Question interstitial pulmonary edema No acute pulmonary emboli or thoracic aortic dissection Mediastinal adenopathy Assessment and Plan - Diagnosis (1) COVID-19 Is this a current diagnosis for this admission?: Yes Plan: Patient is admitted to the medical floor on continuous cardiac telemetry and pulse oximetry. He is provided supplemental oxygen, as needed, maintain saturations greater than 89%. Scheduled and as needed nebulizer treatments. He is placed on IV azithromycin; Day #3 of 5. Start Remdesivir; day #2 of 5 Decrease dexamethasone to 6 mg daily. Full dose Lovenox. Zinc, vitamin D, vitamin C, and melatonin supplementation. Encourage pulmonary toilet. Isolation precautions. (2) COPD with exacerbation Is this a current diagnosis for this admission?: Yes Plan: Management for COPD as above. Patient requesting pulmonology referral; follow up as outpatient 2-4 weeks following COVID recovery. (3) Acute respiratory failure with hypoxia Is this a current diagnosis for this admission?: Yes Plan: Improved; now maintaining oxygen saturations on room air, though with dyspnea with minimal activity. Secondary to #1 and 2. Management as above. (4) Opiate dependence, continuous Is this a current diagnosis for this admission?: Yes Plan: We will continue the patient's home medication regiment. - Time Time Spent with patient: 35 or more minutes Medications reviewed and adjusted accordingly: Yes Anticipated Discharge Disposition: Home, Self Care Anticipated Discharge Timeframe: ~4 days (following course of Remdesivir)
[2020-02-27] MEDS: CYCLOBENZAPRINE HCL 10 MG TABLET PO PRN (21:50)
[2020-02-27] MEDS: OXYCODONE-ACETAMINOPHEN 5-325 MG TABLET PO PRN (21:50)
[2020-02-27] MEDS: MELATONIN 3 MG TABLET PO SCH (21:51)
[2020-02-28 05:13] LABS: HEMATOCRIT 39.6 % (37.9-51.0); HEMOGLOBIN 13.8 g/dL (13.5-17.0); MEAN CORPUSCULAR HEMOGLOBIN 32.8 pg (27.0-33.4); MEAN CORPUSCULAR HGB CONC 34.8 g/dL (32.0-36.0); MEAN CORPUSCULAR VOLUME 94 fl (80-97); PLATELET COUNT 289 10^3/uL (150-450); RED CELL DISTRIBUTION WIDTH 12.9 % (11.5-14.0); WHITE BLOOD COUNT 11.8 10^3/uL (4.0-10.5)
[2020-02-28 05:39] LABS: ANION GAP 7 (5-19); BLOOD UREA NITROGEN 17 mg/dL (7-20); CALCIUM 8.7 mg/dL (8.4-10.2); CARBON DIOXIDE 24 mmol/L (22-30); CHLORIDE 105 mmol/L (98-107); GLUCOSE 126 mg/dL (75-110)
[2020-02-28] MEDS: DEXAMETHASONE SOD PHOSPHATE INJ 4 MG/1 ML VIAL IV SCH (10:07)
[2020-02-28] MEDS: ENOXAPARIN SODIUM INJ 100 MG/1 ML DISP.SYRIN SUBCUT SCH ×2 (10:07→21:39)
[2020-02-28] MEDS: ZINC SULFATE 220 MG CAPSULE PO SCH (10:07)
[2020-02-28] MEDS: CHOLECALCIFEROL (D3) 400 UNIT TABLET PO SCH (10:07)
[2020-02-28] MEDS: FAMOTIDINE 20 MG TABLET PO SCH ×2 (10:08→21:40)
[2020-02-28] MEDS: ASCORBIC ACID 500 MG TABLET PO SCH ×2 (10:08→18:01)
[2020-02-28] MEDS: GABAPENTIN 300 MG CAPSULE PO SCH ×3 (10:09→21:39)
[2020-02-28] MEDS: REMDESIVIR (EUA) 100 MG in NORMAL SALINE 250 ML IV SCH (11:39)
[2020-02-28] MEDS: OXYCODONE-ACETAMINOPHEN 5-325 MG TABLET PO PRN ×2 (13:29→21:39)
[2020-02-28] MEDS: CYCLOBENZAPRINE HCL 10 MG TABLET PO PRN ×2 (13:29→21:39)
--- NOTE | 2020-02-28 17:45 | PDOC PROGRESS REPORT ---
Subjective Progress Note for:: 02/28/20 Subjective:: Сергей Woodard is a 69-year-old male with past medical history of mild COPD, opiate dependent chronic back pain who was admitted on February 25, 2020 with acute respiratory failure with hypoxia secondary to COVID-19 and COPD exacerbation. D2 hospital stay 02/27/20; Feels much better, mild dyspnea on exertion. He was started on remedisivir and azithromycin D3 hospital stay 02/28/20 : He was seen and examined at bedside sitting comfortably on the bed denies any cough chest pain shortness of breath appetite good. Afebrile. On D2 on remdesivir and dexamethasone Reason For Visit: COPD WITH EXACERBATION,HYPOXIA,COVID-19 Physical Exam Vital Signs: Temp Pulse Resp BP Pulse Ox 97.8 F 74 19 135/70 H 93 02/28/20 11:11 02/28/20 14:00 02/28/20 11:11 02/28/20 11:11 02/28/20 11:11 Pulse Oximeter Continuous Start: 02/25/20 1 6:35 Freq: RTQ4 Status: Complete Protocol: Document 02/28/20 10:03 [facility] (Rec: 02/28/20 10:04 [facility] [id number]) Pulse Oximetry Assessment Oxygen Saturation (92-100) 95 Oxygen Delivery Method Room Air Fraction of Inspired Oxygen (FIO2) 21 Equipment Usage Equipment Discontinued Continuous SpO2 Machine # xx Intake & Output 02/27/20 02/28/20 02/29/20 06:59 06:59 06:59 Intake Total 2296 2312 250 Balance 2296 2312 250 Weight 92.4 kg 89.6 kg General appearance: PRESENT: no acute distress, well-developed, well-nourished Head exam: PRESENT: atraumatic, normocephalic Eye exam: PRESENT: EOMI, PERRLA Mouth exam: PRESENT: moist Neck exam: PRESENT: full ROM. ABSENT: JVD, lymphadenopathy Respiratory exam: PRESENT: clear to auscultation hernan, unlabored. ABSENT: acc essory muscle use, crackles, retraction, wheezes Cardiovascular exam: PRESENT: RRR, +S1, +S2. ABSENT: diastolic murmur, systolic murmur, tachycardia Pulses: PRESENT: +2 pedal pulses bilateral GI/Abdominal exam: PRESENT: normal bowel sounds, soft. ABSENT: guarding, tenderness Extremities exam: PRESENT: full ROM. ABSENT: calf tenderness, joint swelling, pedal edema Musculoskeletal exam: PRESENT: full ROM. ABSENT: deformity Neurological exam: PRESENT: alert, awake, oriented to person, oriented to place, oriented to time Psychiatric exam: PRESENT: normal mood Results Laboratory Results: 02/28/20 04:35 02/28/20 04:35 02/28/20 02/28/20 04:35 04:35 WBC 11.8 H RBC 4.20 L Hgb 13.8 Hct 39.6 MCV 94 MCH 32.8 MCHC 34.8 RDW 12.9 Plt Count 289 Sodium 136.2 L Potassium 4.0 Chloride 105 Carbon Dioxide 24 Anion Gap 7 BUN 17 Creatinine 0.64 Est GFR ( Amer) > 60 Glucose 126 H Calcium 8.7 02/25/20 02/25/20 12:23 12:23 Creatine Kinase 84 Troponin I < 0.012 Impressions: Chest X-Ray 02/25/20 00:00 IMPRESSION: Obstructive lung disease Few Janie lines at the left lung base, question minimal interstitial pulmonary edema Chest/Abdomen CTA 02/25/20 13:42 IMPRESSION: Interstitial infiltrates in the dependent portion of the bilateral upper and lower lobes. Question interstitial pulmonary edema No acute pulmonary emboli or thoracic aortic dissection Mediastinal adenopathy Assessment and Plan - Diagnosis (1) COVID-19 Is this a current diagnosis for this admission?: Yes Plan: Patient is admitted to the medical floor on continuous cardiac telemetry and pulse oximetry. - Scheduled and as needed nebulizer treatments. -continue azithromycin; Day #3 of 5 switch to oral - continue Remdesivir; day #2 of 5 - continue dexamethasone to 6 mg daily. - Full dose Lovenox. - Zinc, vitamin D, vitamin C, and melatonin supplementation. - Encourage pulmonary toilet. - Isolation precautions. (2) Acute respiratory failure with hypoxia Is this a current diagnosis for this admission?: Yes Plan: - resolved. Not requiring O2 support - will continue to monitor (3) COPD with exacerbation Is this a current diagnosis for this admission?: Yes Plan: - continue neb treatments Patient requesting pulmonology referral; follow up as outpatient 2-4 weeks following COVID recovery. (4) Opiate dependence, continuous Is this a current diagnosis for this admission?: Yes Plan: We will continue the patient's home medication regiment. - Time Time Spent with patient: 15-24 minutes Medications reviewed and adjusted accordingly: Yes Anticipated Discharge Disposition: Home, Self Care Anticipated Discharge Timeframe: to be determined
[2020-02-28] MEDS: AZITHROMYCIN 250 MG TABLET PO SCH (18:01)
[2020-02-28] MEDS: MELATONIN 3 MG TABLET PO SCH (21:38)
[2020-02-29 05:02] LABS: HEMOGLOBIN 14.1 g/dL (13.5-17.0); MEAN CORPUSCULAR HGB CONC 35.3 g/dL (32.0-36.0); MEAN CORPUSCULAR VOLUME 93 fl (80-97); PLATELET COUNT 286 10^3/uL (150-450); RED BLOOD COUNT 4.28 10^6/uL (4.35-5.55); RED CELL DISTRIBUTION WIDTH 13.1 % (11.5-14.0); WHITE BLOOD COUNT 8.3 10^3/uL (4.0-10.5)
[2020-02-29 05:24] LABS: ALKALINE PHOSPHATASE 57 U/L (38-126); ANION GAP 7 (5-19); ASPARTATE AMINO TRANSFERASE 61 U/L (17-59); BILIRUBIN,DIRECT 0.2 mg/dL (0.0-0.4); BILIRUBIN,TOTAL 0.5 mg/dL (0.2-1.3); BLOOD UREA NITROGEN 18 mg/dL (7-20); CALCIUM 8.7 mg/dL (8.4-10.2); CARBON DIOXIDE 23 mmol/L (22-30); CHLORIDE 105 mmol/L (98-107); GLUCOSE 119 mg/dL (75-110); POTASSIUM 4.4 mmol/L (3.6-5.0); TOTAL PROTEIN 5.2 g/dL (6.3-8.2)
--- NOTE | 2020-02-29 06:36 | PDOC PROGRESS REPORT ---
Subjective Progress Note for:: 02/29/20 Subjective:: Сергей Woodard is a 69-year-old male with past medical history of mild COPD, opiate dependent chronic back pain who was admitted on February 25, 2020 with acute respiratory failure with hypoxia secondary to COVID-19 and COPD exacerbation. D2 hospital stay 02/27/20; Feels much better, mild dyspnea on exertion. He was started on remedisivir and azithromycin D3 hospital stay 02/28/20 : He was seen and examined at bedside sitting comfortably on the bed denies any cough chest pain shortness of breath appetite good. Afebrile. On D2 on remdesivir and dexamethasone D4 hospital stay 02/29/20: He was seen and examined at bedside. Denies any cough, SOB, dyspnea, fever. Good appetite. No diarrhea. On d3 of remdesivir. D4 azithromycin, D3 dexa. He is in good spirits, eager to go home Reason For Visit: COPD WITH EXACERBATION,HYPOXIA,COVID-19 Physical Exam Vital Signs: Temp Pulse Resp BP Pulse Ox 97.5 F 62 16 136/65 H 95 02/29/20 03:31 02/29/20 03:31 02/29/20 03:31 02/29/20 03:31 02/29/20 03:31 Pulse Oximeter Continuous Start: 02/25/20 16:35 Freq: RTQ4 Status: Complete Protocol: Document 02/28/20 10:03 [facility] (Rec: 02/28/20 10:04 [facility] [id number]) Pulse Oximetry Assessment Oxygen Saturation (92-100) 95 Oxygen Delivery Method Room Air Fraction of Inspired Oxygen (FIO2) 21 Equipment Usage Equipment Discontinued Continuous SpO2 Machine # xx Intake & Output 02/27/20 02/28/20 02/29/20 06:59 06:59 06:59 Intake Total 2296 2312 510 Balance 2296 2312 510 Weight 92.4 kg 89.6 kg 90.1 kg General appearance: PRESENT: no acute distress, cooperative Head exam: PRESENT: atraumatic, normocephalic Eye exam: PRESENT: EOMI, PERRLA Mouth exam: PRESENT: moist Neck exam: PRESENT: full ROM. ABSENT: JVD, lymphadenopathy Respiratory exam: PRESENT: clear to auscultation hernan, symmetrical, unlabored. ABSENT: rales, tachypnea, wheezes Cardiovascular exam: PRESENT: RRR, +S1, +S2. ABSENT: diastolic murmur, systolic murmur Pulses: PRESENT: +2 pedal pulses bilateral Vascular exam: PRESENT: normal capillary refill. ABSENT: pallor GI/Abdominal exam: PRESENT: normal bowel sounds, soft. ABSENT: guarding, rebound, tenderness Rectal exam: PRESENT: deferred Extremities exam: PRESENT: full ROM Musculoskeletal exam: PRESENT: full ROM Neurological exam: PRESENT: alert, awake, oriented to person, oriented to place, oriented to time, oriented to situation Psychiatric exam: PRESENT: normal mood Skin exam: PRESENT: normal color Results Laboratory Results: 02/29/20 04:11 02/29/20 04:11 02/29/20 02/29/20 04:11 04:11 WBC 8.3 RBC 4.28 L Hgb 14.1 Hct 40.0 MCV 93 MCH 33.0 MCHC 35.3 RDW 13.1 Plt Count 286 Sodium 135.1 L Potassium 4.4 Chloride 105 Carbon Dioxide 23 Anion Gap 7 BUN 18 Creatinine 0.59 Est GFR ( Amer) > 60 Glucose 119 H Calcium 8.7 Total Bilirubin 0.5 AST 61 H Alkaline Phosphatase 57 Total Protein 5.2 L Albumin 3.0 L 02/25/20 02/25/20 12:23 12:23 Creatine Kinase 84 Troponin I < 0.012 Impressions: Chest X-Ray 02/25/20 00:00 IMPRESSION: Obstructive lung disease Few Janie lines at the left lung base, question minimal interstitial pulmonary edema Chest/Abdomen CTA 02/25/20 13:42 IMPRESSION: Interstitial infiltrates in the dependent portion of the bilateral upper and lower lobes. Question interstitial pulmonary edema No acute pulmonary emboli or thoracic aortic dissection Mediastinal adenopathy Assessment and Plan - Diagnosis (1) COVID-19 Is this a current diagnosis for this admission?: Yes Plan: - on room air sats 98%. Afebrile. good appetite - Scheduled and as needed nebulizer treatments. -continue azithromycin; Day #4 of 5 switch to oral - continue Remdesivir; day #3 of 5 - continue dexamethasone to 6 mg daily. - Full dose Lovenox. - Zinc, vitamin D, vitamin C, and melatonin supplementation. - Encourage pulmonary toilet. - Isolation precautions. (2) Acute respiratory failure with hypoxia Is this a current diagnosis for this admission?: Yes Plan: - resolved. Not requiring O2 support - will continue to monitor (3) COPD with exacerbation Is this a current diagnosis for this admission?: Yes Plan: - continue neb treatments Patient requesting pulmonology referral; follow up as outpatient 2-4 weeks following COVID recovery. (4) Opiate dependence, continuous Is this a current diagnosis for this admission?: Yes Plan: We will continue the patient's home medication regiment. - Plan Summary Summary: To complete 5 days of remdesivir then discharge to home. - Time Time Spent with patient: 15-24 minutes Medications reviewed and adjusted accordingly: Yes Anticipated Discharge Disposition: Home, Self Care Anticipated Discharge Timeframe: within 72 hours
[2020-02-29] MEDS: GABAPENTIN 300 MG CAPSULE PO SCH ×3 (07:45→21:52)
[2020-02-29] MEDS: ASCORBIC ACID 500 MG TABLET PO SCH ×2 (09:39→17:19)
[2020-02-29] MEDS: CHOLECALCIFEROL (D3) 400 UNIT TABLET PO SCH (09:39)
[2020-02-29] MEDS: FAMOTIDINE 20 MG TABLET PO SCH ×2 (09:39→21:51)
[2020-02-29] MEDS: ZINC SULFATE 220 MG CAPSULE PO SCH (09:40)
[2020-02-29] MEDS: ENOXAPARIN SODIUM INJ 100 MG/1 ML DISP.SYRIN SUBCUT SCH ×2 (09:40→21:51)
[2020-02-29] MEDS: DEXAMETHASONE SOD PHOSPHATE INJ 4 MG/1 ML VIAL IV SCH (09:41)
[2020-02-29] MEDS: REMDESIVIR (EUA) 100 MG in NORMAL SALINE 250 ML IV SCH (11:42)
[2020-02-29] MEDS: AZITHROMYCIN 250 MG TABLET PO SCH (17:19)
[2020-02-29] MEDS: MELATONIN 3 MG TABLET PO SCH (21:51)
[2020-03-01 05:21] LABS: ALBUMIN 3.1 g/dL (3.5-5.0); ALKALINE PHOSPHATASE 59 U/L (38-126); ANION GAP 5 (5-19); ASPARTATE AMINO TRANSFERASE 56 U/L (17-59); BILIRUBIN,DIRECT 0.3 mg/dL (0.0-0.4); BILIRUBIN,TOTAL 0.5 mg/dL (0.2-1.3); BLOOD UREA NITROGEN 17 mg/dL (7-20); CALCIUM 8.7 mg/dL (8.4-10.2); CARBON DIOXIDE 25 mmol/L (22-30); CHLORIDE 103 mmol/L (98-107); GLUCOSE 113 mg/dL (75-110); POTASSIUM 4.4 mmol/L (3.6-5.0); TOTAL PROTEIN 5.6 g/dL (6.3-8.2)
[2020-03-01] MEDS: GABAPENTIN 300 MG CAPSULE PO SCH (08:36)
[2020-03-01] MEDS: DEXAMETHASONE SOD PHOSPHATE INJ 4 MG/1 ML VIAL IV SCH (10:29)
[2020-03-01] MEDS: FAMOTIDINE 20 MG TABLET PO SCH (10:30)
[2020-03-01] MEDS: ENOXAPARIN SODIUM INJ 100 MG/1 ML DISP.SYRIN SUBCUT SCH (10:30)
[2020-03-01] MEDS: ASCORBIC ACID 500 MG TABLET PO SCH (10:30)
[2020-03-01] MEDS: CHOLECALCIFEROL (D3) 400 UNIT TABLET PO SCH (10:30)
[2020-03-01] MEDS: ZINC SULFATE 220 MG CAPSULE PO SCH (10:30)
[2020-03-01] MEDS: REMDESIVIR (EUA) 100 MG in NORMAL SALINE 250 ML IV SCH (10:30)
[2020-03-01 20:22] VITALS: BP 108/66
--- NOTE | 2020-03-02 06:35 | PDOC DISCHARGE SUMMARY ---
Impression - Admit/DC Date/PCP Admission Date/Primary Care Provider: 02/25/20 16:03 ANNELIESE VAZQUEZ Discharge Date: 03/01/20 - Discharge Diagnosis (1) COVID-19 Is this a current diagnosis for this admission?: Yes (2) Acute respiratory failure with hypoxia Is this a current diagnosis for this admission?: Yes (3) COPD with exacerbation Is this a current diagnosis for this admission?: Yes (4) Opiate dependence, continuous Is this a current diagnosis for this admission?: Yes - Assessment Summary: To complete 5 days of remdesivir then discharge to home. - Additional Information Resuscitation Status: Do Not Intubate Discharge Diet: As Tolerated Discharge Activity: Activity As Tolerated, Balance Activity w/Rest, Energy Conservation Referrals: ROBE RODRIGUES MD [ACTIVE STAFF] - Prescriptions: Ascorbic Acid [Acerola C] 500 mg PO DAILY 30 Days #30 pkg Albuterol Sulfate [Proair HFA Inhalation Aerosol 8.5 gm MDI] 1 puff IH Q4 PRN 30 Days #1 mdi PRN Reason: Cholecalciferol (Vitamin D3) [Vitamin D3 400 Unit Tablet] 400 unit PO DAILY 30 Days #30 tablet Rivaroxaban [Xarelto 10 mg Tablet] 10 mg PO DAILY 31 Days #31 tablet Zinc Sulfate [Zinc-220 Capsule] 220 mg PO DAILY 30 Days #30 capsule Home Medications: Cyclobenzaprine HCl [Flexeril 10 mg Tablet] 10 mg PO TIDP PRN #15 tab 10/04/17 Gabapentin [Neurontin 300 mg Capsule] 300 mg PO QID 03/30/19 Dronabinol 5 mg PO TID 02/26/20 Oxycodone HCl/Acetaminophen [Percocet 5-325 mg Tablet] 1 tab PO TID 02/26/20 Albuterol Sulfate [Proair HFA Inhalation Aerosol 8.5 gm MDI] 1 puff IH Q4 PRN 30 Days #1 mdi 03/01/20 Ascorbic Acid [Acerola C] 500 mg PO DAILY 30 Days #30 pkg 03/01/20 Cholecalciferol (Vitamin D3) [Vitamin D3 400 Unit Tablet] 400 unit PO DAILY 30 Days #30 tablet 03/01/20 Rivaroxaban [Xarelto 10 mg Tablet] 10 mg PO DAILY 31 Days #31 tablet 09/03/20 Zinc Sulfate [Zinc-220 Capsule] 220 mg PO DAILY 30 Days #30 capsule 03/01/20 History of Present Illiness History of Present Illness: MARCOS BARRIGA is a 69 year old male, past medical history of mild COPD not on daily inhalers opiate dependent chronic back pain who presented to the ED with 1 week of progressively worsening fatigue malaise dyspnea nonproductive cough and pleurisy. He was tested for COVID-19 at an outpatient clinic and noted and was notified this morning that his result was positive. Elevation in the ED revealed tachypnea hypoxia wheezing rhonchi leukopenia elevated d-dimer VBG is acceptable, mild hyponatremia, elevated ferritin, elevated LDH. CTA of the chest showed mild mediastinal adenopathy, and interstitial infiltrates. He was admitted for further management. He was started on supplemental oxygen nasal cannula IV azithromycin, dexamethasone, remdesivir. Hospital Course Hospital Course: He was admitted in the COVID unit. On day 2 of hospital stay he was maintaining oxygen saturation 91 to 94% on room air body aches has improved,dyspnea has resolved. He was continued on remdesivir and dexamethasone, azithro. On d3 of hospital stay he continued to improve and did not require O2 support. he was subsequently discharged after receiving 5 days of remdesivir. Physical Exam Vital Signs: Temp Pulse Resp BP Pulse Ox 97.6 F 81 16 108/66 97 03/01/20 12:53 03/01/20 12:53 03/01/20 12:53 03/01/20 12:53 03/01/20 12:53 Pulse Oximeter Continuous Start: 02/25/20 16:35 Freq: RTQ4 Status: Complete Protocol: Document 02/28/20 10:03 HCR (Rec: 02/28/20 10:04 HCR [id number]) Pulse Oximetry Assessment Oxygen Saturation (92-100) 95 Oxygen Delivery Method Room Air Fraction of Inspired Oxygen (FIO2) 21 Equipment Usage Equipment Discontinued Continuous SpO2 Machine # xx Intake & Output 02/29/20 03/01/20 03/02/20 06:59 06:59 06:59 Intake Total 510 1150 650 Balance 510 1150 650 Weight 90.1 kg 88.6 kg General appearance: PRESENT: no acute distress, cooperative, well-developed, well-nourished Head exam: PRESENT: atraumatic, normocephalic Eye exam: PRESENT: EOMI, PERRLA Mouth exam: PRESENT: moist Neck exam: PRESENT: full ROM. ABSENT: JVD Respiratory exam: PRESENT: clear to auscultation hernan, symmetrical, unlabored. ABSENT: crackles, rales, wheezes Cardiovascular exam: PRESENT: RRR, +S1, +S2 Pulses: PRESENT: +2 pedal pulses bilateral Vascular exam: PRESENT: normal capillary refill GI/Abdominal exam: PRESENT: normal bowel sounds, soft. ABSENT: tenderness Rectal exam: PRESENT: deferred Extremities exam: PRESENT: full ROM. ABSENT: pedal edema Musculoskeletal exam: PRESENT: full ROM Neurological exam: PRESENT: alert, awake, oriented to person, oriented to place, oriented to time Psychiatric exam: PRESENT: normal mood Skin exam: PRESENT: normal color Results Laboratory Results: WBC 8.3 10^3/uL (4.0-10.5) 02/29/20 04:11 RBC 4.28 10^6/uL (4.35-5.55) L 02/29/20 04:11 Hgb 14.1 g/dL (13.5-17.0) 02/29/20 04:11 Hct 40.0 % (37.9-51.0) 02/29/20 04:11 MCV 93 fl (80-97) 02/29/20 04:11 MCH 33.0 pg (27.0-33.4) 02/29/20 04:11 MCHC 35.3 g/dL (32.0-36.0) 02/29/20 04:11 RDW 13.1 % (11.5-14.0) 02/29/20 04:11 Plt Count 286 10^3/uL (150-450) 02/29/20 04:11 Lymph % (Auto) Not Reportable 02/26/20 05:44 Chaves % (Auto) Not Reportable 02/26/20 05:44 Eos % (Auto) Not Reportable 02/26/20 05:44 Baso % (Auto) Not Reportable 02/26/20 05:44 Absolute Neuts (auto) Not Reportable 02/26/20 05:44 Absolute Lymphs (auto) Not Reportable 02/26/20 05:44 Absolute Monos (auto) Not Reportable 02/26/20 05:44 Absolute Eos (auto) Not Reportable 02/26/20 05:44 Absolute Basos (auto) Not Reportable 02/26/20 05:44 Total Counted 50 02/26/20 05:44 Seg Neutrophils % Not Reportable 02/26/20 05:44 Seg Neuts % (Manual) 84 % (42-78) H 02/26/20 05:44 Lymphocytes % (Manual) 12 % (13-45) L 02/26/20 05:44 Monocytes % (Manual) 4 % (3-13) 02/26/20 05:44 Eosinophils % (Manual) 0 % (0-6) 02/26/20 05:44 Basophils % (Manual) 0 % (0-2) 02/26/20 05:44 Abs Neuts (Manual) 1.5 10^3/uL (1.7-8.2) L 02/26/20 05:44 Abs Lymphs (Manual) 0.2 10^3/uL (0.5-4.7) L 02/26/20 05:44 Abs Monocytes (Manual) 0.1 10^3/uL (0.1-1.4) 02/26/20 05:44 Absolute Eos (Manual) 0.0 10^3/uL (0.0-0.6) 02/26/20 05:44 Abs Basophils (Manual) 0.0 10^3/uL (0.0-0.2) 02/26/20 05:44 Clumped Platelets PRESENT 02/26/20 05:44 Platelet Comment ADEQUATE 02/26/20 05:44 RBC Morph Comment NORMO-CYTIC/CHROMIC 02/26/20 05:44 PT 12.4 SEC (11.4-15.4) 02/25/20 12:23 INR 0.91 02/25/20 12:23 D-Dimer 2.44 ug/mL (0.00-0.50) H 02/25/20 12:23 VBG pH 7.42 (7.30-7.42) 02/25/20 12:23 VBG pCO2 35.1 mmHg (35-63) 02/25/20 12:23 VBG HCO3 22.4 mmol/L (20-32) 02/25/20 12:23 VBG Base Excess -1.3 mmol/L 02/25/20 12:23 Sodium 133.3 mmol/L (137-145) L 03/01/20 04:17 Potassium 4.4 mmol/L (3.6-5.0) 03/01/20 04:17 Chloride 103 mmol/L (98-107) 03/01/20 04:17 Carbon Dioxide 25 mmol/L (22-30) 03/01/20 04:17 Anion Gap 5 (5-19) 03/01/20 04:17 BUN 17 mg/dL (7-20) 03/01/20 04:17 Creatinine 0.64 mg/dL (0.52-1.25) 03/01/20 04:17 Est GFR ( Amer) > 60 (>60) 03/01/20 04:17 Est GFR (MDRD) Non-Af > 60 (>60) 03/01/20 04:17 Glucose 113 mg/dL (75-110) H 03/01/20 04:17 Calcium 8.7 mg/dL (8.4-10.2) 03/01/20 04:17 Ferritin 630.00 ng/mL (17.9-464.0) H 02/25/20 12:23 Total Bilirubin 0.5 mg/dL (0.2-1.3) 03/01/20 04:17 Direct Bilirubin 0.3 mg/dL (0.0-0.4) 03/01/20 04:17 Neonat Total Bilirubin Not Reportable 03/01/20 04:17 Neonat Direct Bilirubin Not Reportable 03/01/20 04:17 Neonat Indirect Bili Not Reportable 03/01/20 04:17 AST 56 U/L (17-59) 03/01/20 04:17 ALT 105 U/L (<50) H 03/01/20 04:17 Alkaline Phosphatase 59 U/L (38-126) 03/01/20 04:17 Lactate Dehydrogenase 305 U/L (120-246) H 02/25/20 12:23 Creatine Kinase 84 U/L (55-170) 02/25/20 12:23 Troponin I < 0.012 ng/mL 02/25/20 12:23 Total Protein 5.6 g/dL (6.3-8.2) L 03/01/20 04:17 Albumin 3.1 g/dL (3.5-5.0) L 03/01/20 04:17 Urine Color YELLOW 02/27/20 15:05 Urine Appearance CLEAR 02/27/20 15:05 Urine pH 6.0 (5.0-9.0) 02/27/20 15:05 Ur Specific Bixby 1.027 02/27/20 15:05 Urine Protein 30 mg/dL (NEGATIVE) H 02/27/20 15:05 Urine Glucose (UA) NEGATIVE mg/dL (NEGATIVE) 02/27/20 15:05 Urine Ketones NEGATIVE mg/dL (NEGATIVE) 02/27/20 15:05 Urine Blood NEGATIVE (NEGATIVE) 02/27/20 15:05 Urine Nitrite NEGATIVE (NEGATIVE) 02/27/20 15:05 Urine Bilirubin NEGATIVE (NEGATIVE) 02/27/20 15:05 Urine Urobilinogen NEGATIVE mg/dL (<2.0) 02/27/20 15:05 Ur Leukocyte Esterase NEGATIVE (NEGATIVE) 02/27/20 15:05 Urine WBC (Auto) 1 /HPF 02/27/20 15:05 Urine RBC (Auto) 0 /HPF 02/27/20 15:05 Squamous Epi Cells Auto <1 /HPF 02/26/20 09:30 Urine Mucus (Auto) OCC /LPF 02/27/20 15:05 Urine Ascorbic Acid 40 (NEGATIVE) H 02/27/20 15:05 Slides for Path Review PATHOLOGIST REVIEWED 02/26/20 05:44 02/25/20 12:23 Troponin I < 0.012 Impressions: Chest X-Ray 02/25/20 00:00 IMPRESSION: Obstructive lung disease Few Janie lines at the left lung base, question minimal interstitial pulmonary edema Chest/Abdomen CTA 02/25/20 13:42 IMPRESSION: Interstitial infiltrates in the dependent portion of the bilateral upper and lower lobes. Question interstitial pulmonary edema No acute pulmonary emboli or thoracic aortic dissection Mediastinal adenopathy Plan Plan of Treatment: - patient has to self isolate for at least 1 more week after recovery - to take xarelto 10 mg daily for 31 days Time Spent: Less than 30 Minutes Stroke Is this a Stroke Patient?: No Acute Heart Failure - Is this a Heart Failure Patient?: No
== END 2020-03-01 14:46 | disposition home or self-care (01) | DRG 177 ==
LOC: ER 11:29 → EH 16:03 → 3N 17:41
PROVIDERS: ADMIT Internal Medicine; ATTEND Internal Medicine
PROC: XW033E5 Introduction of Remdesivir Anti-infective into Peripheral Vein, Percutaneous Approach, New Technology Group 5 (ICD-10-PCS; principal; 2020-02-25)
DX: U07.1 COVID-19 (principal); J12.89 Other viral pneumonia; J96.01 Acute respiratory failure with hypoxia; J44.0 Chronic obstructive pulmonary disease with (acute) lower respiratory infection; E87.1 Hypo-osmolality and hyponatremia; F11.20 Opioid dependence, uncomplicated; G89.29 Other chronic pain; M54.9 Dorsalgia, unspecified; R59.0 Localized enlarged lymph nodes; Z66 Do not resuscitate; Z79.899 Other long term (current) drug therapy; Z87.891 Personal history of nicotine dependence; Z60.2 Problems related to living alone
CPT/HCPCS: 36415; 71045; 71275; 80048; 80053; 81001; 82550; 82728; 82803; 83615; 84484; 85025; 85027; 85379; 85610; 87040; 93005; 93010; 94640; 94667; 94799; 96361; 99285; J0456; J1100; J1650; J2930; J3490; J7030; J7050; J7060; J7613

== ENCOUNTER → 2020-05-28 | Outpatient (CLI) | payer OTHER, MEDICARE ==
--- NOTE | 2020-05-28 08:26 | RADIOLOGY REPORT (SQ) ---
EXAM DESCRIPTION: CT CHEST WITHOUT IMAGES COMPLETED DATE/TIME: 05/28/2020 8:10 am REASON FOR STUDY: R91.8 OTHER NONSPECIFIC ABNORMAL FINDING OF LUNG FIELD R91.8 OTHER NONSPECIFIC AB NORMAL FINDING OF LUNG FIELD COMPARISON: CT chest dated 02/25/2020 TECHNIQUE: CT scan performed of the chest without intravenous contrast. Images reviewed with lung, soft tissue and bone windows. Reconstructed coronal and sagittal MPR images reviewed. All images st ored on PACS. All CT scanners at this facility use dose modulation, iterative reconstruction, and/or weight based d osing when appropriate to reduce radiation dose to as low as reasonably achievable (ALARA). [facility]: Dose Right [facility]: CareDose [facility]: Dose Right [facility]: Teradose 4D [facility]: Smart Auth0 RADIATION DOSE: CT Rad equipment meets quality standard of care and radiation dose reduction techniq ues were employed. CTDIvol: 13.4 mGy. DLP: 630 mGy-cm. mGy. LIMITATIONS: No technical limitations. FINDINGS: LUNGS AND PLEURA: Basilar airspace disease previously described has resolved. Scattered a reas of pleural thickening most likely post traumatic or post infectious. There are 2 small noncalci fied right lower lobe pulmonary nodules. There is a 4 mm nodule on series 4, image 93. There is a 3 .3 mm nodule on series 4, image 100. Please see below for recommended follow-up. There is a calcifi ed nodule in the right lung base best demonstrated on series 4, image 113. No effusions. No consoli dation. HILAR AND MEDIASTINAL STRUCTURES: No identified masses or abnormal nodes. No obvious aneurysm. HEART AND VASCULAR STRUCTURES: No aneurysm. No pericardial effusion. UPPER ABDOMEN: No significant findings. Limited exam. THYROID AND OTHER SOFT TISSUES: No masses. No adenopathy. BONES: Degenerative changes in the spine. HARDWARE: None in the chest. OTHER: No other significant findings. IMPRESSION: 2 small noncalcified pulmonary nodules in the right lower lobe. A single calcified pulm onary nodule consistent with old granulomatous disease. Please see below for recommended follow-up. COMMENT: F[place]NER CRITERIA FOR FOLLOW-UP OF PULMONARY NODULES Incidentally detected new nodules in persons 35 or older. HIGH RISK: History of smoking or other known risk factors. <6 mm single solid nodule: LOW RISK: no routine followup. HIGH RISK: optional CT 12 mo. TECHNICAL DOCUMENTATION: JOB ID: [id number] Quality ID # [id number]: Final reports with documentation of one or more dose reduction techniques (e.g., Au tomated exposure control, adjustment of the mA and/or kV according to patient size, use of iterative reconstruction technique) 2010 [employer]- All Rights Reserved Reading location - IP/workstation name: [email or web address]
== END ==
LOC: RAD 07:59
PROVIDERS: ATTEND Internal Medicine Pulmonary Disease
DX: R91.8 Other nonspecific abnormal finding of lung field (principal)
CPT/HCPCS: 71250

== ENCOUNTER → 2020-07-02 | Outpatient (CLI) | payer OTHER, MEDICARE ==
[2020-07-02 18:22] LABS: ABSOLUTE EOSINOPHILS # (AUTO) 0.1 10^3/uL (0.0-0.6); ABSOLUTE LYMPHOCYTES (AUTO) 2.3 10^3/uL (0.5-4.7); ABSOLUTE MONOCYTES (AUTO) 0.5 10^3/uL (0.1-1.4); ABSOLUTE NEUT (AUTO) 3.4 10^3/uL (1.7-8.2); BASOPHILS % (AUTO) 0.6 % (0-2); HEMATOCRIT 40.7 % (37.9-51.0); HEMOGLOBIN 14.1 g/dL (13.5-17.0); MEAN CORPUSCULAR HEMOGLOBIN 32.4 pg (27.0-33.4); MEAN CORPUSCULAR HGB CONC 34.7 g/dL (32.0-36.0); MEAN CORPUSCULAR VOLUME 94 fl (80-97); PLATELET COUNT 217 10^3/uL (150-450); RED BLOOD COUNT 4.35 10^6/uL (4.35-5.55); SEGMENTED NEUTROPHILS % (AUTO) 53.4 % (42-78); TOTAL CELLS COUNTED % (AUTO) 100 %; WHITE BLOOD COUNT 6.4 10^3/uL (4.0-10.5)
[2020-07-02 18:29] LABS: APPEARANCE,URINE CLEAR; BILIRUBIN,URINE NEGATIVE (NEGATIVE); COLOR,URINE YELLOW; GLUCOSE, URINE NEGATIVE (NEGATIVE); KETONES,URINE NEGATIVE (NEGATIVE); LEUKOCYTE ESTERASE,URINE NEGATIVE (NEGATIVE); NITRITE,URINE NEGATIVE (NEGATIVE); PROTEIN,URINE NEGATIVE (NEGATIVE); URINE SPECIFIC GRAVITY 1.016; UROBILINOGEN,URINE NEGATIVE mg/dL (<2.0)
[2020-07-02 18:38] LABS: INTERNATIONAL RATION (INR) 0.92; PROTHROMBIN TIME 12.6 SEC (11.4-15.4)
[2020-07-02 18:39] LABS: PARTIAL THROMBOPLASTIN TIME 32.4 SEC (23.5-35.8)
== END ==
LOC: OD 17:03
PROVIDERS: ATTEND Nurse Practitioner Family
DX: Z51.81 Encounter for therapeutic drug level monitoring (principal); Z79.899 Other long term (current) drug therapy
CPT/HCPCS: 36415; 81001; 85025; 85610; 85730

== ENCOUNTER 2020-07-13 19:18 | Emergency (ER) | payer OTHER, MEDICARE ==
[2020-07-13 19:37] VITALS: BP 133/83
--- NOTE | 2020-07-13 22:14 | ER Document Report ---
ED Neck/Back Problem - General Chief Complaint: Back Pain Stated Complaint: BACK PROBLEM Time Seen by Provider: 07/13/20 21:06 Primary Care Provider: YVES HUNTER FNP-C [Primary Care Provider] - Follow up as needed Mode of Arrival: Ambulatory Information source: Patient TRAVEL OUTSIDE OF THE [place] IN LAST 30 DAYS: No - HPI Notes: Patient here requiring a dressing change on his temporary spinal stimulator. Patient had a spinal stimulator placed 2 days ago. He states that the occlusive dressing has pulled off and is concerned that he may get an infection and would like a new dressing applied. He denies any pain. No fever. No drainage. No nausea, vomiting, diarrhea. No numbness, tingling, weakness. No bowel or bladder dysfunction. No severe headache. No chest pain or shortness of breath. He states that the spinal stimulator is working great to control his pain. No other complaints at this time. - Related Data Allergies/Adverse Reactions: No Known Allergies Allergy (Verified 07/13/20 22:35) Past Medical History - Social History Smoking Status: Never Smoker Frequency of alcohol use: None Drug Abuse: None Family History: Reviewed & Not Pertinent - Past Medical History Cardiac Medical History: Denies: Hx Coronary Artery Disease, Hx Heart Attack, Hx Hypertension Pulmonary Medical History: Reports: Hx COPD Denies: Hx Asthma, Hx Bronchitis, Hx Pneumonia Neurological Medical History: Denies: Hx Cerebrovascular Accident, Hx Seizures Renal/ Medical History: Denies: Hx Peritoneal Dialysis Musculoskeletal Medical History: Reports Hx Arthritis - NECK, BACK Psychiatric Medical History: Denies: Hx Depression Past Surgical History: Reports: Hx Orthopedic Surgery - Toe has metal in it - Immunizations Hx Diphtheria, Pertussis, Tetanus Vaccination: Yes Review of Systems - Review of Systems -: Yes All other systems reviewed and negative Physical Exam - Vital signs Vitals: Temp Pulse Resp BP Pulse Ox 97.9 F 83 16 133/83 H 96 07/13/20 19:33 07/13/20 19:33 07/13/20 19:33 07/13/20 19:33 07/13/20 19:33 - Notes Notes: GENERAL: alert, cooperative, nontoxic, no distress. HEAD: normocephalic, atraumatic EYES: conjunctiva pink without discharge, no external redness or swelling. EARS: no external swelling, no external redness NOSE: atraumatic, no external swelling MOUTH/THROAT: mucous membranes moist and pink NECK: soft, supple, full range of motion, no meningismus. CHEST: no distress, lungs clear and equal throughout. No wheezing, rales, rhonchi. CARDIAC: regular rate and rhythm, no murmur BACK: Temporary spinal stimulator in place. Occlusive dressing has rolled up and is no longer occlusive. There is no redness or tenderness. No drainage. No bleeding. EXTREMITIES: full range of motion of all extremities. No redness, no swelling. NEURO: alert and oriented 3, no focal deficits, full range of motion of all extremities. PYSCH: appropriate mood, affect. Patient is cooperative. SKIN: pink, warm, dry, no rash. Course - Re-evaluation Re-evalutation: 07/13/20 22:13 Patient is nontoxic-appearing with stable vitals. Old dressing was removed and a new occlusive dressing was applied over the spinal stimulator cables. The patient tolerated this well. Patient will be discharged home. 07/13/20 22:43 Patient is nontoxic-appearing stable vitals. Here requesting a dressing change on his temporary spinal stimulator. Was placed few days ago and the occlusive dressing has pulled off and he would like it changed. On exam the patient looks extremely well. There is no signs of infection. The old dressing was removed and nonstick dressing was applied over the leads and then an occlusive dressing was applied over the entire thing. The patient tolerated this well. Patient has no other complaints at this time. Patient be discharged home with instructions to follow-up with his neurosurgeon as scheduled. Follow-up sooner for any worsening pain, fever, numbness, tingling, weakness, any further concerns. The patient's emergency department workup and current diagnosis were explained to the patient and or family. Follow-up instructions were provided. Medications if prescribed were discussed. Instructions for when to return to the emergency department including specific worrisome symptoms were discussed with the patient and/or family. - Vital Signs Vital signs: Temp Pulse Resp BP Pulse Ox 97.9 F 83 16 133/83 H 96 07/13/20 19:33 07/13/20 19:33 07/13/20 19:33 07/13/20 19:33 07/13/20 19:33 - Laboratory Results Critical Laboratory Results Reviewed: No Critical Results - Radiology Results Critical Radiology Results Reviewed: No Critical Results Discharge - Discharge Clinical Impression: Encounter for change of dressing Back pain Qualifiers: Back pain location: low back pain Chronicity: chronic Back pain laterality: unspecified Sciatica presence: without sciatica Qualified Code(s): M54.5 - Low back pain Condition: Stable Disposition: HOME, SELF-CARE Additional Instructions: Keep dressing in place. Follow-up with your doctor as scheduled. Follow-up sooner for worsening pain, fever, redness, drainage, any further concerns. Referrals: YVES HUNTER FNP-C [Primary Care Provider] - Follow up as needed
== END 2020-07-13 22:36 | disposition home or self-care (01) ==
LOC: ER 19:18
DX: Z48.01 Encounter for change or removal of surgical wound dressing (principal); G89.18 Other acute postprocedural pain; M54.5 Low back pain
CPT/HCPCS: 99281